=== PATIENT | female | born 1960 | race Caucasian/White ===

== ENCOUNTER → 2016-11-21 | Day surgery (SDC) | payer OTHER ==
[~2016-11-21] VITALS: Ht 160 cm; Wt 56.7 kg
[~2016-11-21] MED LIST: 0.9% Sodium Chloride 1,000 ML IV PRN; Sodium Chloride LOK Flush 10 mL Syringe IV PRN; VENL75CA PO; fentaNYL-PF 50 mCg/mL 2 mL Inj IVPUSH PRN
[2016-11-21 07:37] VITALS: BP 121/81; PULSE 78; RESP 14; O2SAT 100
[2016-11-21 08:34] VITALS: BP 131/77; PULSE 80; RESP 16; O2SAT 100
[2016-11-21 08:46] VITALS: BP 117/70; PULSE 74; RESP 16; O2SAT 99
--- NOTE | 2016-11-21 09:29 | ENDO ---
[address] [address] ENDOSCOPY PROCEDURE PATIENT: DAVID CALIXTO : 1960 MR#: [id number] ADMIT: 11/21/2016 JOB ID: [id number] DATE: 11/21/2016 PROCEDURE: Esophagogastroduodenoscopy. INDICATION: Gastroesophageal reflux. The patient's ASA classification is 1. Mallampati score is 2. MEDICATIONS: 1. Versed at 6 mg. 2. Fentanyl 150 mcg. INSTRUMENT USED: GIF H 180 J. PROCEDURE DETAILS: After informed consent was obtained, the patient was brought into the GI suite, where she was placed on oxygen via nasal cannula and monitored with continuous pulse oximeter, telemetry and blood pressure monitoring. A time-out was performed. Then, she was placed in the left lateral decubitus position and medications were administered for sedation. A bite block was placed and then medications were administered for sedation. The standard EGD scope was inserted through the bite block and advanced under direct visualization to the second portion of the duodenum without difficulty. FINDINGS: 1. Normal appearing duodenal bulb, first and second portion. Multiple random biopsies were obtained. 2. Normal-appearing pylorus, antrum and gastric body. 3. Retroflexed views in the gastric body revealed a normal-appearing cardia and fundus. 4. Multiple random biopsies were obtained throughout the antrum and body of the stomach. 5. The GE junction was at 41 cm and appeared regular. 6. Normal appearing esophagus. IMPRESSION: Normal esophagogastroduodenoscopy examination to second portion of duodenum. RECOMMENDATIONS: 1. Await biopsy results. 2. Reflux precautions. Continue PPI daily. 3. Proceed to colonoscopy. PROCEDURE PERFORMED: Colonoscopy. INDICATION: Change in bowel habits. Please see above for ASA classification, Mallampati score and medications. INSTRUMENT USED: PCF H 180 AL. PREPARATION QUALITY: Was good. PROCEDURE DETAILS: After completion of the EGD examination, the patient was turned and a digital rectal examination was performed, which was unremarkable. The colonoscope was then inserted into the rectum and advanced under direct visualization to the cecum, which was identified by the presence of the ileocecal valve and appendiceal orifice. Once the cecum was reached, colonoscope was withdrawn back into the rectum as the mucosa and lumen were examined. In the rectum, retroflexion was performed. Following retroflexion, remaining air in the rectum was suctioned. Procedure was completed. FINDINGS: There were scattered diverticula seen throughout the transverse and descending colon. IMPRESSION: Left-sided diverticulosis. Otherwise normal examination to cecum. RECOMMENDATIONS: 1. Fiber rich diet. 2. Repeat colonoscopy in 10 years, sooner if symptoms should dictate. COMPLICATIONS: None. ESTIMATED BLOOD LOSS: Less than 5 mL.
--- NOTE | 2016-11-26 09:37 | PATH ---
SURGICAL PATHOLOGY Attending Physician:Joceline Gerber CASE STATUS: Signed Out PATIENT NAME: DAVID CALIXTO PID: [id number] : 1960 DATE COLLECTED:11/21/2016 19:01 SPECIMEN: 1: Duodenum, Biopsy 2: Gastric, Biopsy CLINICAL HISTORY: BLOATING, ABDOMINAL PAIN 1). DUODENUM BIOPSY 2). GASTRIC BIOPSY FINAL DIAGNOSIS: 1. Duodenum, Biopsy: Superficial portions of duodenal mucosa with no diagnostic abnormality. Negative for active inflammation, features of sprue, dysplasia, and malignancy. 2. Gastric Biopsy: Superficial portions of gastric body-type and antral mucosa with no diagnostic abnormality. Negative for H. pylori by H&E stain and immunohistochemistry studies. Negative for intestinal metaplasia, dysplasia, and malignancy. ICD10: K29.7 GROSS DESCRIPTION: The specimen is received in two formalin filled containers labeled with the patient's name. 1). The specimen is labeled "duodenum" and consists of 3 portions of tissue which aggregate to 0.3 x 0.2 x 0.1 CM. The specimen is entirely submitted in cassette 1A. 2). The specimen is labeled "gastric" and consists of 3 portions of tissue which aggregate to 0.3 x 0.3 x 0.2 CM. The specimen is entirely submitted in cassette 2A. 11/21/2016DC MICRO DESCRIPTION: 2. An immunohistochemical stain was performed to evaluate for Helicobacter organisms and is negative. A control stain showed appropriate reactivity. This test was developed and its performance characteristics determined by [facility]. It has not been cleared or approved by the [place]. Food and Drug Administration. The FDA has determined that such clearance or approval is not necessary. This test is used for clinical purposes. It should not be regarded as investigational or for research. ICD-9 CODES: CPT CODES: 1: 30168 2: 24313, 32211 Electronically Signed Out Naima Martin MD [facility] Pathology [facility] [address], [place] [address] Technical component performed at [facility], [address], [place], [address]
== END | disposition home or self-care (01) ==
LOC: END 00:38
PROVIDERS: ATTEND Internal Medicine Gastroenterology
DX: R19.4 Change in bowel habit (principal); K57.30 Diverticulosis of large intestine without perforation or abscess without bleeding; K21.9 Gastro-esophageal reflux disease without esophagitis
CPT/HCPCS: 43239; 45378; 99153; G0500; J2250; J3010; J7030